=== PATIENT | female | born 1980 | race African-American/Black ===

== ENCOUNTER 2022-01-19 15:35 | Emergency (ER) | payer OTHER ==
[~2022-01-19] VITALS: Ht 170.2 cm; Wt 90.3 kg
== END 2022-01-19 18:40 | disposition home or self-care (01) ==
LOC: ER 15:35
DX: S01.111A Laceration without foreign body of right eyelid and periocular area, initial encounter (principal); V00.838A Other accident with motorized mobility scooter, initial encounter; Y93.9 Activity, unspecified; Y92.89 Other specified places as the place of occurrence of the external cause; Y99.9 Unspecified external cause status